=== PATIENT | male | born 1970 | race Caucasian/White ===

== ENCOUNTER 2016-10-30 19:58 | Emergency (ER) | payer BC ==
[~2016-10-30] VITALS: Ht 193 cm; Wt 125.3 kg
[~2016-10-30 19:58] MED LIST: ADDE20 PO; FLUO-1 PO; INSU1.2I SQ; LOMO2.5T PO; ZOFR4TAB3 SL
[2016-10-30 20:03] VITALS: BP 142/104; PULSE 96; RESP 16; TEMP 98.9; O2SAT 99
--- NOTE | 2016-10-30 20:34 | PD ---
HPI . infected cyst for over 2 mts Chief Complaint: Lump, Cyst, Hernia Time Seen by Provider: 20:34 Travel History International Travel<30 days: No Contact w/Intl Traveler<30days: No Traveled to known affect area: No History of Present Illness HPI 46-year-old male here with complaints of infected cyst for over 2 months. Patient had around Bactrim and says the area improved. He has since completed Bactrim over one month ago and then now noticed that the area is becoming infected again. He is here today hoping that he can receive incision and drainage as he has significant pain in this area. He tells me that he is unable to work due to the pain. He has no other complaints. He denies any fever or chills. He also has an appointment with dermatology on Wednesday for possible incision and drainage. PFSH Past Medical History Hx Anticoagulant Therapy: No ADD: Yes Cardiovascular Problems: No Chemotherapy: No Cerebrovascular Accident: No Diabetes: Yes Patient Takes Glucophage: Yes Diminished Hearing: No Respiratory: No Immunizations Current: Yes Tetanus Vaccination: > 5 Years Influenza Vaccination: No Social History Alcohol Use: No Tobacco Use: Yes (1PPD) Substance Use: Yes (SOBER - WAS ADDICTED TO POT AND PILLS: QUIT 2008) Allergies-Medications (Allergen,Severity, Reaction): Coded Allergies: No Known Allergies (Verified , 10/30/16) Reported Meds & Prescriptions Reported Meds & Active Scripts Active Percocet (Oxycodone-Acetaminophen) 5-325 mg Tab 1 Tab PO Q6H PRN Bactrim DS (Sulfamethoxazole-Trimethoprim) 800-160 Mg Tab 1 Tab PO BID Reported Sky Gilbert Pen Inj (Insulin Glargine) 300 Unit/Ml Pen 35 Units SQ DAILY Prozac (Fluoxetine HCl) 10 Mg Cap 10 Mg PO DAILY Adderall (Amphetamine-Dextroamphetamine) 20 Mg Tab 20 Mg PO DAILY Avoid late evening doses. Space doses at least 4 to 6 hours if more than once/day dosing. Review of Systems General / Constitutional: No: Fever Eyes: No: Visual changes HENT: No: Headaches Cardiovascular: No: Chest Pain or Discomfort Respiratory: No: Shortness of Breath Gastrointestinal: No: Abdominal Pain Genitourinary: No: Dysuria Musculoskeletal: Positive: Pain (right inner thigh) Skin: Positive Other (right inner thigh cellulitis ), No Rash Neurologic: No: Weakness Psychiatric: No: Depression Endocrine: No: Polydipsia Hematologic/Lymphatic: No: Easy Bruising Physical Exam Narrative GENERAL: AAO x 3, no acute distress, Well-nourished, well-developed patient. SKIN: Warm and dry. No visible rashes or bruising. right inner thigh with small 3 cm area of cellulitis without abscess formation or fluid collection. Warm to touch, erythematous HEAD: Normocephalic and atraumatic. EYES: No scleral icterus. No injection or drainage. ENT: No nasal drainage noted. Mucous membranes pink. Airway patent. NECK: Supple, trachea midline. No JVD. CARDIOVASCULAR: Regular rate and rhythm without murmurs, gallops, or rubs. RESPIRATORY: Breath sounds equal bilaterally. No accessory muscle use. No rhonchi or rales. GASTROINTESTINAL: Abdomen soft, non-tender, nondistended. EXTREMITIES: No cyanosis or edema. BACK: Nontender without obvious deformity. No CVA tenderness. PSYCH: AAO x 3, normal affect. Data Data Last Documented VS Vital Signs Date Time Temp Pulse Resp B/P Pulse Ox O2 Delivery O2 Flow Rate FiO2 10/30/16 20:03 98.9 96 16 142/104 99 MDM Medical Decision Making Medical Screen Exam Complete: Yes Emergency Medical Condition: Yes Medical Record Reviewed: Yes Differential Diagnosis cellulitis, less likely abscess, folliculitis Narrative Course 46-year-old male here with complaints of infected cyst for over 2 months. Patient had around Bactrim and says the area improved. He has since completed Bactrim over one month ago and then now noticed that the area is becoming infected again. He is here today hoping that he can receive incision and drainage as he has significant pain in this area. He tells me that he is unable to work due to the pain. He has no other complaints. He denies any fever or chills. He also has an appointment with dermatology on Wednesday for possible incision and drainage. Patient seen and examined. He does not have an abscess. This area cannot be drained. This is a superficial cellulitis and will need to be treated with oral antibiotics. I discussed this with him. I advised him that he will need to use warm compresses and if the area forms a head that he can come back in for incision and drainage. He tells me that he will follow-up with his assistant controller for further recommendations. I advised him that I will prescribe Bactrim has worked in the past. He asked for something for pain. Patient verbalized understanding of instructions, questions were answered, and thanked me for their care. I advised them if their condition worsens, please return to the nearest emergency room for further care. Diagnosis Primary Impression: Cellulitis of right thigh Patient Instructions: Cellulitis (ED), General Instructions Additional Instructions: [place] for worsening signs of infection which include increased redness, increased warmth, purulent drainage, increased swelling or streaking. As we discussed, use warm compresses to see if this area forms ahead. If it does form a head, come back for incision and drainage. Please return to emergency department if your symptoms return or worsen. Follow up with your primary care provider. Take medications as prescribed. Med/Other Pt SpecificInfo: Prescription(s) given Scripts Oxycodone-Acetaminophen (Percocet)5-325 mg Tab1 Tab PO Q6H PRN (PAIN) #10 TAB Ref 0 Prov:Jose Luis Andrews MD 10/30/16 Sulfamethoxazole-Trimethoprim (Bactrim DS)800-160 Mg Tab1 Tab PO BID #20 TAB Prov:Jose Luis Andrews MD 10/30/16 Disposition: 01 DISCHARGE HOME Condition: Stable Karely Collier Oct 30, 2016 20:34
[2016-10-30] MEDS ORDERED: BACT800T5 PO (20:54)
[2016-10-30] MEDS ORDERED: PERC5TAB12 PO (20:54)
== END 2016-10-30 21:05 | disposition home or self-care (01) ==
LOC: PHEFT 19:58
DX: L03.115 Cellulitis of right lower limb (principal); F17.210 Nicotine dependence, cigarettes, uncomplicated; E11.9 Type 2 diabetes mellitus without complications; Z79.84 Long term (current) use of oral hypoglycemic drugs
CPT/HCPCS: 99282

== ENCOUNTER 2016-11-06 23:36 | Emergency (ER) | payer BC ==
[~2016-11-06] VITALS: Ht 193 cm; Wt 125.1 kg
[~2016-11-06 23:36] MED LIST changes: +BACT800T5 PO; -LOMO2.5T PO; +PERC5TAB12 PO; -ZOFR4TAB3 SL
[2016-11-06 23:42] VITALS: BP 134/90; PULSE 88; RESP 16; TEMP 98.5; O2SAT 97
[2016-11-06] MEDS ORDERED: INSU1.2I SQ (23:57)
[2016-11-07] MEDS ORDERED: LIDOCAINE HCL 1% PF 30 ML VIAL INFIL ONE (00:45)
[2016-11-07] MEDS ORDERED: TETANUS/DIPHTHERIA TOXOID ADULT 0.5 ML VIAL IM ONE (00:45)
--- NOTE | 2016-11-07 01:10 | RADHPO ---
EXAM DATE/TIME: 11/07/2016 00:46 [facility] COMPARISON: No previous studies available for comparison. INDICATIONS : Evaluate for foreign body. Patient stepped on nail. MEDICAL HISTORY : None. SURGICAL HISTORY : None. ENCOUNTER: Initial ACUITY: 3 days PAIN SCORE: 3/10 LOCATION: Left foot FINDINGS: Three views of the left foot demonstrate no fracture or dislocation. The Lisfranc joint appears intac t. Mineralization is within normal limits and there is no significant arthropathy. No soft tissue abn ormality or radiopaque foreign body is identified. CONCLUSION: No acute left foot abnormality is identified. No radiopaque foreign body is visualized. Leland Delgado MD on November 07, 2016 at 1:07 Board Certified Radiologist. This report was verified electronically.
--- NOTE | 2016-11-07 02:22 | PD ---
HPI Chief Complaint: Laceration/Skin Injury Time Seen by Provider: 00:37 Travel History International Travel<30 days: No Contact w/Intl Traveler<30days: No Traveled to known affect area: No History of Present Illness HPI 46-year-old male stepped on a nail 3 days ago. Patient presents with complaint of left plantar foot pain. Patient has noted small area of redness. Patient is diabetic. There is no swelling or drainage. Patient's had no ascending erythema no groin lymphadenopathy no fever or chills and states his blood sugars are well-controlled for him. Patient states he was wearing croc shoes and the nail was embedded in a piece of wood fence and approximate 1 inch was sticking out from the wooden fence and went through the bottom of his shoe. He did not have to pull the out of his foot. Patient denies other concerns or complaints. Site did bleed. Tetanus status is not current. PFSH Past Medical History Narrative Medical ADHD diabetes tobacco use nursing notes reviewed Hx Anticoagulant Therapy: No ADD: Yes Cardiovascular Problems: No Chemotherapy: No Cerebrovascular Accident: No Diabetes: Yes (TAKES INSULIN) Patient Takes Glucophage: No Diminished Hearing: Yes ([place] BILAT) Respiratory: No Immunizations Current: Yes Tetanus Vaccination: > 5 Years Influenza Vaccination: No Past Surgical History Surgical History: No Previous Surgery Social History Alcohol Use: No Tobacco Use: Yes (1PPD) Substance Use: Yes (SOBER - WAS ADDICTED TO POT AND PILLS: QUIT 2008) Allergies-Medications (Allergen,Severity, Reaction): Coded Allergies: No Known Allergies (Verified , 11/06/16) Reported Meds & Prescriptions Reported Meds & Active Scripts Active Cipro (Ciprofloxacin HCl) 500 Mg Tab 500 Mg PO BID 7 Days Clindamycin (Clindamycin HCl) 150 Mg Cap 300 Mg PO Q6H 7 Days Percocet (Oxycodone-Acetaminophen) 5-325 mg Tab 1 Tab PO Q6H PRN Bactrim DS (Sulfamethoxazole-Trimethoprim) 800-160 Mg Tab 1 Tab PO BID Reported Sky Gilbert Pen Inj (Insulin Glargine) 300 Unit/Ml Pen 47 Units SQ DAILY Prozac (Fluoxetine HCl) 10 Mg Cap 10 Mg PO DAILY Adderall (Amphetamine-Dextroamphetamine) 20 Mg Tab 20 Mg PO DAILY Avoid late evening doses. Space doses at least 4 to 6 hours if more than once/day dosing. Review of Systems Except as stated in HPI: all other systems reviewed are Neg General / Constitutional: No: Fever, Chills Gastrointestinal: No: Nausea, Vomiting Skin: Positive Other (puncture wound), No Rash Hematologic/Lymphatic: No: Lymph Node Enlargement Physical Exam Narrative GENERAL: Well-developed well-nourished male in no acute distress no respiratory distress SKIN: Warm and dry. HEAD: Normocephalic. EYES: No scleral icterus. No injection or drainage. NECK: Supple, trachea midline. No JVD or lymphadenopathy. CARDIOVASCULAR: Regular rate and rhythm without murmurs, gallops, or rubs. RESPIRATORY: Breath sounds equal bilaterally. No accessory muscle use. GASTROINTESTINAL: Abdomen soft, non-tender, nondistended. MUSCULOSKELETAL: No cyanosis, or edema. Attention left foot plantar surface midfoot pinpoint area without induration fluctuance all tenderness no increased warmth no palpable foreign body no oozing of serous serosanguineous and purulent fluid. BACK: Nontender without obvious deformity. No CVA tenderness. Data Data Last Documented VS Vital Signs Date Time Temp Pulse Resp B/P Pulse Ox O2 Delivery O2 Flow Rate FiO2 11/07/16 00:04 88 16 11/06/16 23:42 98.5 134/90 97 Room Air Orders Foot, Complete ([id number]) (11/07/16 ) Tetanus/Diphtheria Tox Adult (Tetanus/Di (11/07/16 00:45) Lidocaine Pf 1% Inj (Xylocaine-Mpf 1% In (11/07/16 00:45) Blood Glucose (11/07/16 00:37) Clindamycin (Cleocin) (11/07/16 02:30) Levofloxacin (Levaquin) (11/07/16 02:30) MDM Medical Decision Making Medical Screen Exam Complete: Yes Emergency Medical Condition: Yes Medical Record Reviewed: Yes Interpretation(s) Last Impressions Foot X-Ray 11/07/16 0000 Signed Impressions: Service Date/Time: Wednesday, November 07, 2016 00:46 - CONCLUSION: No acute left foot abnormality is identified. No radiopaque foreign body is visualized. Leland Delgado MD Vital Signs Date Time Temp Pulse Resp B/P Pulse Ox O2 Delivery O2 Flow Rate FiO2 4/1/17 00:04 88 16 11/06/16 23:42 98.5 88 16 134/90 97 Room Air Differential Diagnosis Puncture wound, retained foreign body, osteomyelitis, abscess Narrative Course Discussed with patient exploration of left foot plantar surface for possible retained foreign body with recent puncture wound secondary to nail through his shoe. Patient's tetanus status updated. Imaging studies ordered. Lidocaine ordered. Imaging study reveals no radiopaque foreign body this was discussed in detail with patient that oftentimes right upper and nonmetallic foreign bodies are not detected on imaging. Discussed with patient expiration of foot for retained foreign body patient refuses exploration at this time. Patient also is noted to have elevation of his blood sugar and refuses to receive insulin. Patient given first dose of antibiotic clindamycin and levaquin. Patient encouraged to follow up closely with podiatry and to return to the emergency department over the weekend should he notice any increased redness tenderness pain fever or change in his sugars and again is encouraged to follow-up with his primary care provider. Patient is to call string winding machine operator on Wednesday. Diagnosis Primary Impression: Puncture wound of foot, left Qualified Code: S91.332A - Puncture wound of foot, left, initial encounter Additional Impression: DM (diabetes mellitus) Referrals: Audio Visual Secretary call for appointment Primary Care Physician call for appointment Patient Instructions: General Instructions Additional Instructions: Keep one site clean and dry Elevate foot Complete course of antibiotic as prescribed Follow-up with string winding machine operator call office on Wednesday to schedule follow-up appointment Follow-up with primary care provider Return to the emergency department for pain fever increased redness or any concerns Take acetaminophen as needed for fever 100.4F or greater Take ibuprofen every 6-8 hours as needed for pain associated with inflammation or for fever 100.4F or greater Med/Other Pt SpecificInfo: Prescription(s) given Scripts Ciprofloxacin (Cipro)500 Mg [id number] Mg PO BID 7 Days Ref 0 Prov:Katty Roy MD 11/07/16 Clindamycin 150 Mg [id number] Mg PO Q6H 7 Days Ref 0 Prov:Katty Roy MD 11/07/16 Disposition: 01 DISCHARGE HOME Condition: Stable Katty Roy MD Nov 07, 2016 02:22
[2016-11-07 02:25] VITALS: BP 124/81; PULSE 69; RESP 16; O2SAT 97
[2016-11-07] MEDS ORDERED: CIPR-9 PO (02:25)
[2016-11-07] MEDS ORDERED: CLIN1CAP5 PO (02:25)
[2016-11-07] MEDS ORDERED: LEVOFLOXACIN 750 MG TAB PO ONE (02:30)
[2016-11-07] MEDS ORDERED: LEVOFLOXACIN 500 MG TAB PO ONE (02:30)
[2016-11-07] MEDS ORDERED: CLINDAMYCIN 150 MG CAP PO ONE (02:30)
== END 2016-11-07 02:40 | disposition home or self-care (01) ==
LOC: PHED 23:36
DX: S91.332A Puncture wound without foreign body, left foot, initial encounter (principal); F90.9 Attention-deficit hyperactivity disorder, unspecified type; E11.9 Type 2 diabetes mellitus without complications; Z79.4 Long term (current) use of insulin; F17.210 Nicotine dependence, cigarettes, uncomplicated; Z23 Encounter for immunization; W45.0XXA Nail entering through skin, initial encounter; Y93.89 Activity, other specified; Y92.89 Other specified places as the place of occurrence of the external cause; Y99.8 Other external cause status
CPT/HCPCS: 73630; 90471; 90714

== ENCOUNTER 2017-02-18 19:25 | Emergency (ER) | payer SELFPAY ==
[~2017-02-18] VITALS: Ht 193 cm; Wt 124.0 kg
[~2017-02-18 19:25] MED LIST changes: +CIPR-9 PO; +CLIN1CAP5 PO
[2017-02-18 19:34] VITALS: BP 133/88; PULSE 89; RESP 18; TEMP 98.3; O2SAT 98
[2017-02-18] MEDS ORDERED: SODIUM CHLOR 0.9% 1000 ML INJ 1,000 ML IV ONE ×2 (19:55→22:30)
[2017-02-18] MEDS ORDERED: SODIUM CHLORIDE 0.9% FLUSH 10 ML FLUSH IVF PRN (20:00)
[2017-02-18] MEDS ORDERED: ONDANSETRON HCL 4 MG/2 ML VIAL IVP ONE (20:00)
[2017-02-18 20:14] LABS: AUTOMATED NEUTROPHIL # 5.8 TH/MM3 (1.8-7.7); BASOPHIL # 0.2 TH/MM3 (0-0.2); BASOPHIL % 1.7 % (0.0-2.0); EOSINOPHIL # 0.3 TH/MM3 (0-0.4); EOSINOPHIL % 2.3 % (0.0-4.0); HEMO FLAGS DIFF FINAL; LYMPH % 40.2 % (9.0-44.0); LYMPHOCYTE # 4.7 TH/MM3 (1.0-4.8); MEAN CELL VOLUME 85.2 FL (80.0-100.0); MEAN CORPUSCULAR HGB CONC 34.1 % (32.0-36.0); MONO % 5.6 % (0.0-8.0); NEUT % 50.2 % (16.0-70.0); PLATELET COUNT 261 TH/MM3 (150-450); RED BLOOD COUNT 5.04 MIL/MM3 (4.50-5.90); RED CELL DISTRIBUTION WIDTH 12.9 % (11.6-17.2); WHITE BLOOD COUNT 11.7 TH/MM3 (4.0-11.0)
[2017-02-18 20:24] LABS: CHLORIDE 108 MEQ/L (98-107); POTASSIUM 3.8 MEQ/L (3.5-5.1); SODIUM (NA) 142 MEQ/L (136-145)
--- NOTE | 2017-02-18 20:25 | RADRPT ---
EXAM DATE/TIME: 02/18/2017 20:13 [facility] COMPARISON: CHEST SINGLE AP, July 29, 2016, 10:47. INDICATIONS : Shortness of breath, nausea, vomiting, and diarrhea on and off for 2 months. MEDICAL HISTORY : Diabetes mellitus type II. SURGICAL HISTORY : None. ENCOUNTER: Initial ACUITY: 2 months PAIN SCORE: 0/10 LOCATION: Bilateral chest FINDINGS: The lungs are clear without infiltrate, nodule, or mass. There is no appreciable pleural effusion fo r technique. Heart and mediastinum are unremarkable. CONCLUSION: No acute cardiopulmonary disease. Jaden Davis MD on February 18, 2017 at 20:23 Board Certified Radiologist. This report was verified electronically.
[2017-02-18 20:28] LABS: ANION GAP 7 MEQ/L (5-15); BICARBONATE 27.1 MEQ/L (21.0-32.0); BLOOD UREA NITROGEN 18 MG/DL (7-18); MAGNESIUM 1.7 MG/DL (1.5-2.5)
[2017-02-18 20:30] LABS: ALT (GPT) 29 U/L (12-78); AST (GOT) 14 U/L (15-37)
[2017-02-18 20:31] LABS: GLOMERULAR FILTRATION RATE 71 ML/MIN (>89)
[2017-02-18 20:32] LABS: TOTAL BILIRUBIN ADULT 0.7 MG/DL (0.2-1.0)
[2017-02-18 20:33] LABS: ALKALINE PHOSPHATASE 104 U/L (45-117)
[2017-02-18 20:50] VITALS: BP 128/78; PULSE 85; RESP 18; O2SAT 98
[2017-02-18 21:07] LABS: BLOOD, URINE NEG (NEG); GLUCOSE,URINE NEG (NEG); KETONE, URINE TRACE mg/dL (NEG); NITRITE,URINE NEG (NEG); PH, URINE 5.5 (5.0-8.5)
[2017-02-18 21:17] LABS: URINE COLOR AMBER (YELLW/STRAW)
[2017-02-18 21:18] LABS: MUCUS URINE FEW /lpf (OCC)
[2017-02-18 21:19] LABS: COMMENT (UR) CULT NOT INDICATED; CULTURE IF INDICATED CULT NOT INDICATED; SQUAMOUS EPITHELIAL CELL URINE 0-5 /hpf (0-5); WBC, URINE 0-2 /hpf (0-5)
[2017-02-18 21:44] VITALS: BP 129/92; PULSE 80; RESP 16; O2SAT 97
[2017-02-18] MEDS ORDERED: ZOFR4TAB3 SL (22:21)
--- NOTE | 2017-02-18 22:27 | PD ---
HPI Chief Complaint: GI Complaint Time Seen by Provider: 19:55 Travel History International Travel<30 days: No Contact w/Intl Traveler<30days: No Traveled to known affect area: No History of Present Illness HPI 46-year-old male presents to the emergency department for complaint of intermittent vomiting and diarrhea for the past several days and intermittently over the past several months. No weight change no fever no chills no bilious emesis no coffee-ground emesis no hematemesis no melena or hematochezia. Patient has had good oral intake and good control of his blood sugar. Patient is diabetic. Patient is followed closely by his primary care provider donnell Bailey. Patient has had no chest pain or shortness of breath. Patient's had no cough or congestion or respiratory illness. Patient occasionally has generalized abdominal cramping and discomfort denies any abdominal pain recently or at this time. Patient's had no abdominal surgery. Patient states that he's had no constipation. Patient has had some loose diarrhea. 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 Patient has not recently been on antibiotic. Patient denies any skin rash joint pain or swelling. Patient's had no fall or trauma. Patient is unable to identify exacerbating or alleviating factors. PFSH Past Medical History Narrative Medical ADD, diabetes decreased hearing; no surgeries; positive tobacco use, prior substance use none since 2008; nursing notes reviewed Hx Anticoagulant Therapy: No ADD: Yes Cardiovascular Problems: No Chemotherapy: No Cerebrovascular Accident: No Diabetes: Yes Patient Takes Glucophage: No Diminished Hearing: Yes ([place] BILAT) Respiratory: No Immunizations Current: Yes Influenza Vaccination: No Social History Alcohol Use: No Tobacco Use: Yes (1PPD) Substance Use: Yes (SOBER - WAS ADDICTED TO POT AND PILLS: QUIT 2008) Allergies-Medications (Allergen,Severity, Reaction): Coded Allergies: No Known Allergies (Verified , 02/18/17) Reported Meds & Prescriptions Reported Meds & Active Scripts Active Reported Sky Hoguear Pen Inj (Insulin Glargine) 300 Unit/Ml Pen 47 Units SQ DAILY Review of Systems Except as stated in HPI: all other systems reviewed are Neg General / Constitutional: No: Fever, Chills, Weight Loss Eyes: No: Visual changes HENT: No: Headaches, Lightheadedness, Congestion Cardiovascular: No: Chest Pain or Discomfort, Palpitations, Diaphoresis, Dyspnea on exertion, Edema, Claudication Respiratory: No: Cough, Shortness of Breath, Wheezing Gastrointestinal: Positive: Nausea, Vomiting, Diarrhea, Abdominal Pain ( OCCASSIONAL NONE, NOW), No: Hematemesis, Hematochezia, Constipation, Loss of Appetite Genitourinary: No: Urgency, Frequency, Dysuria, Flank Pain Musculoskeletal: No: Myalgias, Arthralgias, Edema, Pain Skin: No Rash Neurologic: No: Weakness, Dizziness, Syncope, Focal Abnormalities, Coordination Problem Psychiatric: No: Anxiety Endocrine: No: Heat Intolerance, Polyuria, Polydipsia Hematologic/Lymphatic: No: Easy Bruising Physical Exam Narrative GENERAL: Well-developed well-nourished male in no acute distress no respiratory distress SKIN: Warm and dry. HEAD: Normocephalic. EYES: No scleral icterus. No injection or drainage. NECK: Supple, trachea midline. No JVD or lymphadenopathy. CARDIOVASCULAR: Regular rate and rhythm without murmurs, gallops, or rubs. RESPIRATORY: Breath sounds equal bilaterally. No accessory muscle use. GASTROINTESTINAL: Abdomen soft, non-tender, nondistended. No guarding or rebound. No hepatosplenomegaly to palpation. No palpable pulsatile mass. MUSCULOSKELETAL: No cyanosis, or edema. BACK: Nontender without obvious deformity. No CVA tenderness. Data Data Last Documented VS Vital Signs Date Time Temp Pulse Resp B/P Pulse Ox O2 Delivery O2 Flow Rate FiO2 02/18/17 21:44 80 16 129/92 97 Room Air 02/18/17 19:34 98.3 Orders Complete Blood Count With Diff (02/18/17 19:55) Comprehensive Metabolic Panel (02/18/17 19:55) Urinalysis - C+S If Indicated (02/18/17 19:55) Lipase (02/18/17 19:55) Iv Access Insert/Monitor (02/18/17 19:55) Ecg Monitoring (02/18/17 19:55) Oximetry (02/18/17 19:55) Ondansetron Inj (Zofran Inj) (02/18/17 20:00) Sodium Chlor 0.9% 1000 Ml Inj (Ns 1000 M (02/18/17 19:55) Sodium Chloride 0.9% Flush (Ns Flush) (02/18/17 20:00) Enteric Path (Stool) (02/18/17 19:55) Chest, Single Ap (02/18/17 19:55) Magnesium (Mg) (02/18/17 19:55) Blood Glucose (02/18/17 19:55) Sodium Chlor 0.9% 1000 Ml Inj (Ns 1000 M (02/18/17 22:30) Labs Laboratory Tests Test 02/18/17 02/18/17 20:00 20:55 White Blood Count 11.7 TH/MM3 Red Blood Count 5.04 MIL/MM3 Hemoglobin 14.6 GM/DL Hematocrit 43.0 % Mean Corpuscular Volume 85.2 FL Mean Corpuscular Hemoglobin 29.0 PG Mean Corpuscular Hemoglobin 34.1 % Concent Red Cell Distribution Width 12.9 % Platelet Count 261 TH/MM3 Mean Platelet Volume 8.6 FL Neutrophils (%) (Auto) 50.2 % Lymphocytes (%) (Auto) 40.2 % Monocytes (%) (Auto) 5.6 % Eosinophils (%) (Auto) 2.3 % Basophils (%) (Auto) 1.7 % Neutrophils # (Auto) 5.8 TH/MM3 Lymphocytes # (Auto) 4.7 TH/MM3 Monocytes # (Auto) 0.7 TH/MM3 Eosinophils # (Auto) 0.3 TH/MM3 Basophils # (Auto) 0.2 TH/MM3 CBC Comment DIFF FINAL Differential Comment Sodium Level 142 MEQ/L Potassium Level 3.8 MEQ/L Chloride Level 108 MEQ/L Carbon Dioxide Level 27.1 MEQ/L Anion Gap 7 MEQ/L Blood Urea Nitrogen 18 MG/DL Creatinine 1.10 MG/DL Estimat Glomerular Filtration 71 ML/MIN Rate Random Glucose 192 MG/DL Calcium Level 9.2 MG/DL Magnesium Level 1.7 MG/DL Total Bilirubin 0.7 MG/DL Aspartate Amino Transf 14 U/L (AST/SGOT) Alanine Aminotransferase 29 U/L (ALT/SGPT) Alkaline Phosphatase 104 U/L Total Protein 7.3 GM/DL Albumin 3.6 GM/DL Lipase 67 U/L Urine Color KARLI Urine Turbidity CLEAR Urine pH 5.5 Urine Specific [place] 1.034 Urine Protein TRACE mg/dL Urine Glucose (UA) NEG mg/dL Urine Ketones TRACE mg/dL Urine Occult Blood NEG Urine Nitrite NEG Urine Bilirubin NEG Urine Leukocyte Esterase NEG Urine WBC 0-2 /hpf Urine Squamous Epithelial 0-5 /hpf Cells Urine Hyaline Casts 6-9 /lpf Urine Mucus FEW /lpf Microscopic Urinalysis Comment CULT NOT INDICATED MDM Medical Decision Making Medical Screen Exam Complete: Yes Emergency Medical Condition: Yes Medical Record Reviewed: Yes Interpretation(s) UA: TRACE KETONES Last Impressions Chest X-Ray 02/18/171954 Signed Impressions: Service Date/Time: February 20:13 - CONCLUSION: No acute cardiopulmonary disease. Jaden Davis MD CBC & BMP Diagram 02/18/17 20:00 Vital Signs Date Time Temp Pulse Resp B/P Pulse Ox O2 Delivery O2 Flow Rate FiO2 02/18/17 21:44 80 16 129/92 97 Room Air 02/18/17 20:50 85 18 128/78 98 Room Air 02/18/17 19:50 Room Air 02/18/17 19:34 98.3 89 18 133/88 98 Differential Diagnosis Abdominal pain, gastroenteritis, gastritis, peptic ulcer disease, pancreatitis, biliary colic, colitis, diverticulitis, uncontrolled diabetes, dehydration, ACS , electrolyte disturbance; unlikely DKA Narrative Course Well-developed well-nourished male in no acute distress no respiratory distress with normal range vital signs by triage was soft nontender abdomen; IV access obtained specimens collected and sent for resulting patient administered bolus of normal saline along with Zofran 4 mg IV Lab values found to be grossly normal range except for trace ketones by automated differential bicarbonate and anion gap values in normal range random postprandial glucose 192 Patient reports that he feels well after hydration and Zofran will be given additional liter of normal saline administered for outpatient management with prescription for Zofran. Patient encouraged to follow-up with his primary care provider and given a work excuse times one day. Diagnosis Primary Impression: Gastroenteritis Additional Impression: DM (diabetes mellitus) Referrals: Primary Care Physician 1 day Patient Instructions: General Instructions Departure Forms: Tests/Procedures, Work Release Special Instructions: no work x 1 day Additional Instructions: Increase fluid hydration follow-up with primary care provider return to the emergency department for any concerns or change in condition No work times one day Takes Zofran as prescribed as needed for nausea and/or vomiting Med/Other Pt SpecificInfo: Prescription(s) given Scripts Ondansetron Odt (Zofran Odt)4 Mg Tab4 Mg SL Q6HR PRN (Nausea/Vomiting) #10 TAB Ref 0 Prov:Katty Roy MD 02/18/17 Disposition: 01 DISCHARGE HOME Condition: Stable Katty Roy MD Feb 18, 2017 22:27
[2017-02-18 22:52] VITALS: BP 116/75
== END 2017-02-18 23:02 | disposition home or self-care (01) ==
LOC: PHED 19:25
DX: K52.9 Noninfective gastroenteritis and colitis, unspecified (principal); E11.9 Type 2 diabetes mellitus without complications; Z79.4 Long term (current) use of insulin
CPT/HCPCS: 71010; 80053; 81001; 83690; 83735; 85025; 96361; 96374; 99284; J2405; J7030

== ENCOUNTER 2017-08-24 13:22 | Emergency (ER) | payer SELFPAY ==
[~2017-08-24] VITALS: Ht 193 cm; Wt 115.0 kg
[~2017-08-24 13:22] MED LIST changes: -ADDE20 PO; -BACT800T5 PO; -CIPR-9 PO; -CLIN1CAP5 PO; -FLUO-1 PO; -PERC5TAB12 PO; +ZOFR4TAB3 SL
[2017-08-24 13:48] VITALS: BP 136/81; PULSE 77; RESP 16; TEMP 98.3; O2SAT 98
[2017-08-24] MEDS ORDERED: BACT800T5 PO (14:01)
[2017-08-24] MEDS ORDERED: CEPH-460 PO (14:01)
--- NOTE | 2017-08-24 14:02 | PD ---
HPI Chief Complaint: Skin Problem Time Seen by Provider: 13:57 Travel History International Travel<30 days: No Contact w/Intl Traveler<30days: No Traveled to known affect area: No History of Present Illness HPI 47-year-old male presents for evaluation of an area of cellulitis in the anterior right lower abdominal wall. Symptoms started several days ago. He reports pain, aching, worse with palpation. He has had similar skin infections multiple times in the past. Denies fevers or chills. No other complaints. PFSH Past Medical History Hx Anticoagulant Therapy: No ADD: Yes Cardiovascular Problems: No Chemotherapy: No Cerebrovascular Accident: No Diabetes: Yes Diminished Hearing: Yes ([place]IL[place]) Respiratory: No Immunizations Current: Yes Social History Alcohol Use: No Tobacco Use: Yes (1PPD) Substance Use: Yes (SOBER - WAS ADDICTED TO POT [employer] PILLS: QUIT 2008) Allergies-Medications (Allergen,Severity, Reaction): Coded Allergies: No Known Allergies (Verified Adverse Reaction, Unknown, 08/24/17) Reported Meds & Prescriptions Reported Meds & Active Scripts Active Keflex (Cephalexin) 500 Mg Capsule 500 Mg PO TID 10 Days Bactrim DS (Sulfamethoxazole-Trimethoprim) 800-160 Mg Tab 1 Tab PO BID Zofran Odt (Ondansetron Odt) 4 Mg Tab 4 Mg SL Q6HR PRN Reported Sky Inmanostar Pen Inj (Insulin Glargine) 300 Unit/Ml Pen 47 Units SQ DAILY Review of Systems Except as stated in HPI: all other systems reviewed are Neg Physical Exam Narrative GENERAL: Well-nourished male in no acute distress SKIN: Warm and dry. Area of erythema with some central folliculitis on the anterior lower abdominal wall. HEAD: Atraumatic. Normocephalic. EYES: Pupils equal and round. No scleral icterus. No injection or drainage. ENT: No nasal bleeding or discharge. Mucous membranes pink and moist. NECK: Trachea midline. No JVD. CARDIOVASCULAR: Regular rate and rhythm. No murmur appreciated. RESPIRATORY: No accessory muscle use. Clear to auscultation. Breath sounds equal bilaterally. GASTROINTESTINAL: Abdomen soft, non-tender, nondistended. Hepatic and splenic margins not palpable. Data Data Last Documented VS Vital Signs Date Time Temp Pulse Resp B/P (MAP) Pulse Ox O2 Delivery O2 Flow Rate FiO2 08/24/17 13:48 98.3 77 16 136/81 (99) 98 MDM Medical Decision Making Medical Screen Exam Complete: Yes Emergency Medical Condition: Yes Medical Record Reviewed: Yes Differential Diagnosis Cellulitis, folliculitis, abscess, carbuncle Narrative Course The patient has cellulitis, folliculitis on the anterior suprapubic region. The patient is being discharged with Bactrim and Keflex. Diagnosis Primary Impression: Cellulitis Additional Instructions: Medication as prescribed. Return for any emergent medical conditions. Med/Other Pt SpecificInfo: Prescription(s) given Scripts Cephalexin (Keflex) 500 Mg Capsule 500 MG PO TID for Infection for 10 Days, CAP 0 Refills Prov: Jose Luis Andrews MD 08/24/17 Sulfamethoxazole-Trimethoprim (Bactrim DS) 800-160 Mg Tab 1 TAB PO BID for Infection, #20 TAB 0 Refills Prov: Jose Luis Andrews MD 08/24/17 Disposition: 01 DISCHARGE HOME Condition: Stable Pérez Shelley Aug 24, 2017 14:02
== END 2017-08-24 15:43 | disposition home or self-care (01) ==
LOC: PHEFT 13:22
DX: L03.311 Cellulitis of abdominal wall (principal); E11.9 Type 2 diabetes mellitus without complications; F98.8 Other specified behavioral and emotional disorders with onset usually occurring in childhood and adolescence; F17.210 Nicotine dependence, cigarettes, uncomplicated; Z79.4 Long term (current) use of insulin
CPT/HCPCS: 99284